=== PATIENT | female | born 1980 | race Caucasian/White ===

== ENCOUNTER 2023-05-30 14:37 | Emergency (ER) | payer BC ==
[~2023-05-30] VITALS: Ht 162.6 cm; Wt 59.0 kg
[2023-05-30 15:04] VITALS: BP_SYST 138; PULSE 118; RESP 18; TEMP 98.2; O2SAT 98
[2023-05-30 15:43] LABS: BASOPHILS % (AUTO) 0.6 % (0.0-2.0); EOSINOPHILS # (AUTO) 0.1 K/uL (0.0-0.4); EOSINOPHILS % (AUTO) 0.7 % (0.0-4.0); HEMOGLOBIN 10.1 g/dL (12.0-16.0); LYMPHOCYTES # (AUTO) 1.3 K/uL (1.0-5.5); LYMPHOCYTES % (AUTO) 16.6 % (20.5-51.5); MEAN CORPUSCULAR HEMOGLOBIN 23 pg (27-31); MEAN CORPUSCULAR HGB CONC 31 % (32-36); MEAN CORPUSCULAR VOLUME 74 fL (79.0-98.0); MONOCYTES # (AUTO) 0.4 K/uL (0.0-1.0); MONOCYTES % (AUTO) 4.9 % (1.7-9.3); NEUTROPHILS # (AUTO) 5.9 K/uL (1.8-7.7); NEUTROPHILS % (AUTO) 77.2 % (40.0-70.0); PLATELET COUNT (AUTO) 345 K/uL (130-430); RED BLOOD CELL COUNT(AUTO) 4.44 MIL/uL (4.2-6.2); RED CELL DISTRIBUTION WIDTH 18.8 % (9.0-15.0); WHITE BLOOD COUNT (AUTO) 7.7 K/uL (4.8-10.8)
[2023-05-30 15:53] LABS: ANION GAP 11 (5-15); CALCIUM 8.5 mg/dL (8.4-11.0); CARBON DIOXIDE 26 mmol/L (23-29); CHLORIDE 101 mmol/L (98-107); CREATININE 0.63 mg/dL (0.55-1.30); GFR AFRICAN AMERICAN 135 mL/min (>90); GLUCOSE 110 mg/dL (74-106); POTASSIUM 3.8 mmol/L (3.5-5.1); SODIUM SERUM 138 mmol/L (136-145); UREA NITROGEN, BLOOD 4 mg/dL (8-21)
[2023-05-30 15:55] LABS: GFR NON AFRICAN-AMERICAN 111 mL/min (>90)
[2023-05-30 15:58] LABS: ALANINE AMINOTRANSFERASE 11 U/L (12-78); ALBUMIN 3.9 g/dL (3.4-4.8); ASPARTATE AMINOTRANSFERASE 24 U/L (10-37); TOTAL BILIRUBIN 0.9 mg/dL (0.0-1.0); TOTAL PROTEIN, SERUM 7.7 g/dL (6.4-8.3)
[2023-05-30 16:02] LABS: ALCOHOL, BLOOD < 3 mg/dL (<10); SALICYLATE < 1 mg/dL (3-30)
[2023-05-30 16:11] LABS: BARBITURATE, URINE NEGATIVE (NEG <=200); BENZODIAZEPINE, URINE NEGATIVE (NEG <=150); COCAINE, URINE NEGATIVE (NEG <=150); METHAMPHETAMINES SCREEN,URINE NEGATIVE (NEG <=500); OPIATE, URINE NEGATIVE (NEG <=100); PHENCYCLIDINE SCREEN,URINE NEGATIVE (NEG <=25); URINE AMPHETAMINE NEGATIVE (NEG <=500); URINE METHADONE NEGATIVE (NEG <=200); URINE OXYCODONE SCREEN NEGATIVE (NEG <=100); URINE PROPOXYPHENE SCREEN NEGATIVE (NEG <=300)
[2023-05-30 16:12] LABS: CANNABINOID, URINE POSITIVE (NEG <=50); UR TRICYCLIC ANTIDEPRESSANTS NEGATIVE (NEG <=300)
[2023-05-30 16:16] LABS: ACETAMINOPHEN < 1 ug/mL (1-30)
[2023-05-30 16:38] LABS: CLARITY/URINE CLEAR (CLEAR); COLOR,URINE YELLOW (YELLOW)
[2023-05-30 16:39] LABS: BILIRUBIN,URINE NEGATIVE (NEGATIVE); BLOOD, URINE 3+ (NEGATIVE); GLUCOSE,URINE NEGATIVE (NEGATIVE); KETONES,URINE NEGATIVE (NEGATIVE); LEUKOCYTE ESTERASE ,URINE NEGATIVE (NEGATIVE); NITRITE, URINE NEGATIVE (NEGATIVE); PROTEIN URINE NEGATIVE (NEGATIVE); UROBILINOGEN,URINE 0.2 (0.2-1.0)
[2023-05-30 16:50] LABS: BACTERIA,URINE FEW /HPF (None Seen); MUCUS,URINE None Seen /LPF (None Seen); WBC,URINE 0-3 /HPF (0-3)
[2023-05-30 17:12] LABS: HYPOCHROMASIA 2+
[2023-05-30 17:13] LABS: ANISOCYTOSIS 1+; OVALOCYTES FEW; STOMATOCYTES FEW
[2023-05-30] MEDS ORDERED: NACL 0.9% 1,000 ML IV ONE (17:15)
[2023-05-30] MEDS ORDERED: LORazepam 1 MG TABLET PO ONE (17:15)
[2023-05-30 17:23] LABS: LIPASE 55 U/L (73-393)
[2023-05-30 19:21] VITALS: BP_SYST 125; PULSE 107; RESP 16; TEMP 98; O2SAT 96
== END 2023-05-30 19:21 | disposition home or self-care (01) ==
LOC: SED 14:37
DX: F41.9 Anxiety disorder, unspecified (principal); R10.9 Unspecified abdominal pain; R07.9 Chest pain, unspecified; F10.10 Alcohol abuse, uncomplicated; Z88.0 Allergy status to penicillin; Z88.1 Allergy status to other antibiotic agents; Z88.5 Allergy status to narcotic agent; Z79.899 Other long term (current) drug therapy; Y90.6 Blood alcohol level of 120-199 mg/100 ml
CPT/HCPCS: 99285; 96360; 71045; 80307; 80053; 83690; 85025; 84484; 36415; 93005; 81000; J7030; G0480; G0481; G0482

== ENCOUNTER 2024-05-31 23:14 | Emergency (ER) | payer BC ==
[~2024-05-31] VITALS: Ht 162.6 cm; Wt 56.7 kg
[~2024-05-31 23:14] MED LIST: METR-154 PO; ONDA-8 TL; TRAM50TA2 PO
[2024-05-31 23:25] VITALS: BP_SYST 131; PULSE 79; RESP 16; TEMP 98.5; O2SAT 99
[2024-06-01] MEDS: NACL 0.9% 1,000 ML IV ONE (01:25)
[2024-06-01] MEDS: MORPHINE 4 MG INJ. 4 MG/ML VIAL IVP ONE (01:26)
[2024-06-01] MEDS: ONDANSETRON HCL 4 MG/2 ML VIAL IVP ONE (01:27)
[2024-06-01 01:34] LABS: ALBUMIN 3.6 g/dL (3.4-4.8); BILIRUBIN,DIRECT 0.1 mg/dL (0.0-0.3); CALCIUM 8.7 mg/dL (8.4-11.0); CREATININE 0.69 mg/dL (0.55-1.30); POTASSIUM 3.9 mmol/L (3.5-5.1); TOTAL BILIRUBIN 0.4 mg/dL (0.0-1.0); TOTAL PROTEIN, SERUM 7.9 g/dL (6.4-8.3)
[2024-06-01 02:06] LABS: BASOPHILS # (AUTO) 0.1 K/uL (0.0-0.2); BASOPHILS % (AUTO) 0.7 % (0.0-2.0); EOSINOPHILS # (AUTO) 0.1 K/uL (0.0-0.4); EOSINOPHILS % (AUTO) 1.3 % (0.0-4.0); HEMATOCRIT 27.9 % (36-48); HEMOGLOBIN 8.5 g/dL (12.0-16.0); LYMPHOCYTES # (AUTO) 1.2 K/uL (1.0-5.5); LYMPHOCYTES % (AUTO) 11.2 % (20.5-51.5); MEAN CORPUSCULAR HEMOGLOBIN 19 pg (27-31); MEAN CORPUSCULAR HGB CONC 30 % (32-36); MEAN CORPUSCULAR VOLUME 62 fL (79.0-98.0); MONOCYTES # (AUTO) 0.7 K/uL (0.0-1.0); MONOCYTES % (AUTO) 6.6 % (1.7-9.3); NEUTROPHILS # (AUTO) 8.7 K/uL (1.8-7.7); NEUTROPHILS % (AUTO) 80.2 % (40.0-70.0); PLATELET COUNT (AUTO) 549 K/uL (130-430); RED BLOOD CELL COUNT(AUTO) 4.49 MIL/uL (4.2-6.2); RED CELL DISTRIBUTION WIDTH 21.5 % (9.0-15.0); WHITE BLOOD COUNT (AUTO) 10.9 K/uL (4.8-10.8)
[2024-06-01 02:43] LABS: BILIRUBIN,URINE NEGATIVE (NEGATIVE); BLOOD, URINE NEGATIVE (NEGATIVE); CLARITY/URINE CLEAR (CLEAR); COLOR,URINE YELLOW (YELLOW); GLUCOSE,URINE NEGATIVE (NEGATIVE); KETONES,URINE TRACE (NEGATIVE); LEUKOCYTE ESTERASE ,URINE NEGATIVE (NEGATIVE); NITRITE, URINE NEGATIVE (NEGATIVE); PROTEIN URINE NEGATIVE (NEGATIVE); UROBILINOGEN,URINE 0.2 (0.2-1.0)
[2024-06-01] MEDS ORDERED: DICY-14 PO (03:40)
[2024-06-01] MEDS ORDERED: PANT20TA2 PO (03:40)
[2024-06-01] MEDS: MAG HYDROX/AL HYDROX/SIMETH 30 ML, DICYCLOMINE HCL 20 MG, LIDOCAINE VISCOUS 2% 15ML (PO... PO ONE (03:49)
[2024-06-01] MEDS: KETOROLAC TROMETHAMINE 30 MG VIAL IVP ONE (03:49)
[2024-06-01 04:09] VITALS: BP_SYST 138; PULSE 71; RESP 16; TEMP 98.3; O2SAT 98
== END 2024-06-01 04:09 | disposition home or self-care (01) ==
LOC: SED 23:14
DX: G89.29 Other chronic pain (principal); R10.13 Epigastric pain; E11.9 Type 2 diabetes mellitus without complications; Z88.0 Allergy status to penicillin; Z88.1 Allergy status to other antibiotic agents; Z88.6 Allergy status to analgesic agent; Z79.899 Other long term (current) drug therapy; Z79.2 Long term (current) use of antibiotics
CPT/HCPCS: 99285; 80076; 80048; 81001; 83690; 85025; 36415; 81003; 74176; 96374; 96375; 96361; 93005; J1885; J2405; J2270; J7030; J2001

== ENCOUNTER 2024-06-03 06:08 | Inpatient (IN) | payer BC ==
[~2024-06-03] VITALS: Ht 162.6 cm; Wt 55.3 kg
[~2024-06-03 06:08] MED LIST changes: +DICY-14 PO; +PANT20TA2 PO
[2024-06-03 06:14] VITALS: BP_SYST 128; PULSE 75; RESP 22; TEMP 96.9; O2SAT 100
[2024-06-03] MEDS: ONDANSETRON HCL 4 MG/2 ML VIAL IVP ONE (06:55)
[2024-06-03] MEDS: KETOROLAC TROMETHAMINE 30 MG VIAL IVP ONE (06:56)
[2024-06-03 07:10] LABS: BASOPHILS # (AUTO) 0.1 K/uL (0.0-0.2); BASOPHILS % (AUTO) 0.4 % (0.0-2.0); EOSINOPHILS % (AUTO) 0.2 % (0.0-4.0); HEMATOCRIT 32.7 % (36-48); HEMOGLOBIN 9.4 g/dL (12.0-16.0); LYMPHOCYTES # (AUTO) 0.7 K/uL (1.0-5.5); LYMPHOCYTES % (AUTO) 5.3 % (20.5-51.5); MEAN CORPUSCULAR HEMOGLOBIN 18 pg (27-31); MEAN CORPUSCULAR HGB CONC 29 % (32-36); MEAN CORPUSCULAR VOLUME 64 fL (79.0-98.0); MONOCYTES # (AUTO) 0.4 K/uL (0.0-1.0); MONOCYTES % (AUTO) 2.8 % (1.7-9.3); NEUTROPHILS # (AUTO) 12.8 K/uL (1.8-7.7); NEUTROPHILS % (AUTO) 91.3 % (40.0-70.0); RED BLOOD CELL COUNT(AUTO) 5.11 MIL/uL (4.2-6.2); RED CELL DISTRIBUTION WIDTH 21.8 % (9.0-15.0)
[2024-06-03 07:39] LABS: ALANINE AMINOTRANSFERASE 18 U/L (12-78); ALBUMIN 3.9 g/dL (3.4-4.8); ANION GAP 10 (5-15); ASPARTATE AMINOTRANSFERASE 15 U/L (10-37); BILIRUBIN,DIRECT 0.2 mg/dL (0.0-0.3); CALCIUM 9.1 mg/dL (8.4-11.0); CARBON DIOXIDE 25 mmol/L (23-29); CHLORIDE 96 mmol/L (98-107); CREATININE 0.63 mg/dL (0.55-1.30); GFR AFRICAN AMERICAN 134 mL/min (>90); GLUCOSE 180 mg/dL (74-106); LIPASE 19 U/L (16-77); POTASSIUM 3.6 mmol/L (3.5-5.1); SODIUM SERUM 131 mmol/L (136-145); TOTAL BILIRUBIN 0.6 mg/dL (0.0-1.0); TOTAL PROTEIN, SERUM 8.4 g/dL (6.4-8.3); UREA NITROGEN, BLOOD 10 mg/dL (8-21)
[2024-06-03 07:44] LABS: SERUM HCG (QUALITATIVE) NEGATIVE (NEGATIVE)
[2024-06-03 07:45] LABS: ALCOHOL, BLOOD < 3 mg/dL (<10); GFR NON AFRICAN-AMERICAN 111 mL/min (>90)
[2024-06-03 08:05] LABS: ANISOCYTOSIS 2+; HYPOCHROMASIA 2+; OVALOCYTES FEW; STOMATOCYTES FEW; TARGET CELLS FEW
[2024-06-03 08:06] LABS: PLATELET COUNT (AUTO) 798 K/uL (130-430)
[2024-06-03] MEDS: MAG HYDROX/AL HYDROX/SIMETH 30 ML, DICYCLOMINE HCL 20 MG, LIDOCAINE VISCOUS 2% 15ML (PO... PO ONE (08:24)
[2024-06-03] MEDS: MORPHINE 4 MG INJ. 4 MG/ML VIAL IVP ONE ×2 (09:24→10:07)
[2024-06-03] MEDS: metroNIDAZOLE 500 mg/NS 100 ML IV ONE (09:25)
[2024-06-03 09:29] LABS: PROTHROMBIN TIME 10.6 SECS (9.5-12.5)
[2024-06-03] MEDS: NS 1000 ML IV.SOLN IV ONE (09:33)
[2024-06-03] MEDS: MORPHINE 2 MG/ML INJ. SYRINGE IVP ONE ×2 (09:45→10:00)
[2024-06-03] MEDS: VANCOMYCIN HCL 1,000 MG in NS 250 ML IV ONE (11:00)
[2024-06-03] MEDS ORDERED: MORPHINE 2 MG/ML INJ. SYRINGE IVP PRN (11:00)
[2024-06-03] MEDS ORDERED: PANTOPRAZOLE SODIUM 40 MG/VIAL (PROTONIX) ONE (11:03)
[2024-06-03] MEDS ORDERED: VANCOMYCIN HCL 1000 MG/VIAL IV ONE (11:03)
[2024-06-03] MEDS: PANTOPRAZOLE SODIUM 80 MG in NS 100 ML IV ONE (11:07)
[2024-06-03 11:35] LABS: BILIRUBIN,URINE NEGATIVE (NEGATIVE); BLOOD, URINE NEGATIVE (NEGATIVE); CLARITY/URINE CLEAR (CLEAR); COLOR,URINE YELLOW (YELLOW); GLUCOSE,URINE NEGATIVE (NEGATIVE); KETONES,URINE TRACE (NEGATIVE); LEUKOCYTE ESTERASE ,URINE NEGATIVE (NEGATIVE); NITRITE, URINE NEGATIVE (NEGATIVE); PROTEIN URINE NEGATIVE (NEGATIVE); UROBILINOGEN,URINE 0.2 (0.2-1.0)
[2024-06-03 11:57] LABS: BARBITURATE, URINE NEGATIVE (NEG <=200); METHAMPHETAMINES SCREEN,URINE NEGATIVE (NEG <=500); URINE AMPHETAMINE NEGATIVE (NEG <=500)
[2024-06-03 11:58] LABS: BENZODIAZEPINE, URINE NEGATIVE (NEG <=150); CANNABINOID, URINE POSITIVE (NEG <=50); COCAINE, URINE NEGATIVE (NEG <=150); OPIATE, URINE POSITIVE (NEG <=100); PHENCYCLIDINE SCREEN,URINE NEGATIVE (NEG <=25); UR TRICYCLIC ANTIDEPRESSANTS NEGATIVE (NEG <=300); URINE METHADONE NEGATIVE (NEG <=200); URINE OXYCODONE SCREEN NEGATIVE (NEG <=100)
[2024-06-03] MEDS: D5/0.45 NS 1,000 ML IV SCH (12:20)
[2024-06-03 13:11] VITALS: BP_SYST 122; PULSE 107; RESP 20; TEMP 97.5
[2024-06-03] MEDS: MORPHINE 4 MG INJ. 4 MG/ML VIAL IVP PRN ×2 (13:55→17:09)
[2024-06-03] MEDS: POTASSIUM CHLORIDE 20 MEQ in D5LR 1,000 ML IV SCH (17:09)
[2024-06-03 20:00] VITALS: BP_SYST 126; PULSE 114; RESP 18; TEMP 98.2; O2SAT 97
[2024-06-03] MEDS: ONDANSETRON HCL 4 MG/2 ML VIAL IM PRN (20:17)
[2024-06-03] MEDS: ONDANSETRON HCL 4 MG/2 ML VIAL IVP PRN (20:19)
[2024-06-03] MEDS: metroNIDAZOLE 500 mg/NS 100 ML IV SCH (22:25)
[2024-06-04 00:30] VITALS: BP_SYST 115; PULSE 127; RESP 18; TEMP 98.4; O2SAT 97
[2024-06-04 04:05] VITALS: BP_SYST 135; PULSE 133; RESP 20; TEMP 99.7; O2SAT 99
[2024-06-04 06:27] LABS: BASOPHILS % (AUTO) 0.4 % (0.0-2.0); HEMATOCRIT 30.6 % (36-48); LYMPHOCYTES # (AUTO) 0.4 K/uL (1.0-5.5); LYMPHOCYTES % (AUTO) 4.8 % (20.5-51.5); MEAN CORPUSCULAR HEMOGLOBIN 19 pg (27-31); MEAN CORPUSCULAR HGB CONC 29 % (32-36); MEAN CORPUSCULAR VOLUME 64 fL (79.0-98.0); MONOCYTES # (AUTO) 0.3 K/uL (0.0-1.0); MONOCYTES % (AUTO) 4.4 % (1.7-9.3); NEUTROPHILS # (AUTO) 6.8 K/uL (1.8-7.7); NEUTROPHILS % (AUTO) 90.4 % (40.0-70.0); PLATELET COUNT (AUTO) 579 K/uL (130-430); RED BLOOD CELL COUNT(AUTO) 4.82 MIL/uL (4.2-6.2); WHITE BLOOD COUNT (AUTO) 7.5 K/uL (4.8-10.8)
[2024-06-04 06:55] LABS: CALCIUM 8.3 mg/dL (8.4-11.0); CREATININE 0.58 mg/dL (0.55-1.30); POTASSIUM 4.3 mmol/L (3.5-5.1)
[2024-06-04 07:00] VITALS: O2SAT 99
[2024-06-04] MEDS: BUPIVACAINE LIPOSOME/PF 266 MG/20 ML VIAL INFIL ONE (07:34)
[2024-06-04 08:00] VITALS: BP_SYST 114; PULSE 127; RESP 20; TEMP 98.1; O2SAT 99
[2024-06-04] MEDS ORDERED: ROCURONIUM BROMIDE 10 MG/ML (ZEMURON) ONE (08:37)
[2024-06-04] MEDS ORDERED: NS 100 ML BAG ONE (08:37)
[2024-06-04] MEDS ORDERED: fentaNYL CITRATE/PF 100 MCG/2 ML AMP ONE (08:37)
[2024-06-04] MEDS ORDERED: MIDAZOLAM HCL 2 MG/2 ML VIAL (VERSED) ONE (08:37)
[2024-06-04] MEDS ORDERED: NS IRRIG SOLN 1000 ML IR ONE (08:37)
[2024-06-04] MEDS ORDERED: NEOSTIGMINE METHYLSULFATE 1 MG/ML, 10 ML VIAL ONE (08:37)
[2024-06-04] MEDS ORDERED: METOCLOPRAMIDE HCL 10 MG/2 ML VIAL ONE (08:37)
[2024-06-04] MEDS ORDERED: SEVOFLURANE 15 MIN GAS INH ONE (08:37)
[2024-06-04] MEDS ORDERED: ONDANSETRON HCL 4 MG/2 ML VIAL ONE (08:37)
[2024-06-04] MEDS ORDERED: GLYCOPYRROLATE 0.2 MG/ML VIAL ONE (08:37)
[2024-06-04] MEDS ORDERED: NS 1000 ML IV.SOLN IV ONE (08:37)
[2024-06-04] MEDS ORDERED: CALCIUM CHLORIDE 1 GM/10 ML DISP.SYRIN (14 mEq Ca++/SYR) ONE (08:37)
[2024-06-04] MEDS ORDERED: DEXAMETHASONE SOD PHOSPHATE 4 MG/ML VIAL ONE (08:37)
[2024-06-04] MEDS ORDERED: WATER FOR IRRIGATION,STERILE 1,000 ML IRRIG.SOLN IR ONE (08:37)
[2024-06-04] MEDS ORDERED: PROPOFOL 200MG/ 20ML VIAL (DIPRIVAN) IV ONE (08:37)
[2024-06-04] MEDS: CALCIUM CHLORIDE 1 GM/10ML VIAL (13.6 mEq Ca++/VIAL) IV ONE (09:45)
[2024-06-04] MEDS ORDERED: METOCLOPRAMIDE HCL 10 MG/2 ML VIAL IVP PRN (10:00)
[2024-06-04] MEDS: ACETAMINOPHEN I.V. 1000 MG 100 ML IV ONE ×2 (10:30→12:41)
[2024-06-04] MEDS: PANTOPRAZOLE SODIUM 40 MG/VIAL (PROTONIX) IVP ONE (10:30)
[2024-06-04] MEDS: MORPHINE 4 MG INJ. 4 MG/ML VIAL IVP PRN (12:25)
[2024-06-04] MEDS: MORPHINE 2 MG/ML INJ. SYRINGE ONE (12:26)
[2024-06-04] MEDS: fentaNYL CITRATE/PF 100 MCG/2 ML AMP ONE (12:40)
[2024-06-04] MEDS: fentaNYL CITRATE/PF 100 MCG/2 ML AMP IVP ONE (12:41)
[2024-06-04] MEDS: ONDANSETRON HCL 4 MG/2 ML VIAL IVP PRN (13:16)
[2024-06-04] MEDS: ONDANSETRON HCL 4 MG/2 ML VIAL ONE (14:11)
[2024-06-04 16:00] VITALS: BP_SYST 114; PULSE 112; RESP 16; TEMP 94.6; O2SAT 98
[2024-06-04] MEDS ORDERED: MORPHINE 2 MG/ML INJ. SYRINGE IVP PRN (18:00)
[2024-06-04] MEDS ORDERED: NALOXONE HCL 0.4 MG/ML AMP (NARCAN) IVP PRN (18:00)
[2024-06-04 20:04] VITALS: BP_SYST 115; PULSE 115; RESP 20; TEMP 98.4; O2SAT 98
[2024-06-04] MEDS: CEFEPIME 2 GM in D5W 100 ML IV SCH (20:57)
[2024-06-04] MEDS: LORazepam 2 MG/ML VIAL IVP PRN (22:36)
[2024-06-05] VITALS (7 sets, daily range): BP systolic 126–142; PULSE 105–135; RESP 18–20; TEMP 98.4–99.7; O2SAT 94–100
[2024-06-05 06:40] LABS: BASOPHILS % (AUTO) 0.1 % (0.0-2.0); EOSINOPHILS % (AUTO) 0.1 % (0.0-4.0); HEMATOCRIT 26.2 % (36-48); HEMOGLOBIN 7.7 g/dL (12.0-16.0); LYMPHOCYTES # (AUTO) 0.6 K/uL (1.0-5.5); LYMPHOCYTES % (AUTO) 5.9 % (20.5-51.5); MEAN CORPUSCULAR HEMOGLOBIN 19 pg (27-31); MEAN CORPUSCULAR HGB CONC 29 % (32-36); MEAN CORPUSCULAR VOLUME 64 fL (79.0-98.0); MONOCYTES # (AUTO) 0.5 K/uL (0.0-1.0); MONOCYTES % (AUTO) 5.4 % (1.7-9.3); NEUTROPHILS # (AUTO) 8.6 K/uL (1.8-7.7); NEUTROPHILS % (AUTO) 88.5 % (40.0-70.0); PLATELET COUNT (AUTO) 503 K/uL (130-430); RED BLOOD CELL COUNT(AUTO) 4.09 MIL/uL (4.2-6.2); RED CELL DISTRIBUTION WIDTH 21.4 % (9.0-15.0); WHITE BLOOD COUNT (AUTO) 9.7 K/uL (4.8-10.8)
[2024-06-05 07:23] LABS: ERYTHROCYTE SEDIMENTATION RATE 50 MM/HR (0-20)
[2024-06-05 08:09] LABS: ALBUMIN 1.7 g/dL (3.4-4.8); CREATININE 0.63 mg/dL (0.55-1.30); PHOSPHORUS 1.9 mg/dL (2.7-4.5); POTASSIUM 4.3 mmol/L (3.5-5.1); TOTAL BILIRUBIN 0.4 mg/dL (0.0-1.0); TOTAL PROTEIN, SERUM 5.2 g/dL (6.4-8.3)
[2024-06-05] MEDS: CALCIUM GLUC 2 GM/100ML-NACL 100 ML IV ONE (14:51)
[2024-06-05] MEDS: NA PHOS 15 MM in NS 250 ML IV ONE (16:04)
[2024-06-05] MEDS: ACETAMINOPHEN 650 MG SUPP.RECT RC PRN (16:10)
[2024-06-05] MEDS ORDERED: iohexoL 180 mgI/mL, 20 ML VIAL IT ONE (17:22)
[2024-06-05] MEDS ORDERED: CYSTOGRAFIN 300 ML INFUS..BTL UR ONE (17:24)
[2024-06-05] MEDS ORDERED: GADOBENATE DIMEGLUMINE 529 MG/ML, 5 ML VIAL IV ONE (17:25)
[2024-06-05] MEDS ORDERED: DIATR MEGLU/DIATRIZ SOD 30 ML SOLUTION PO ONE (17:25)
[2024-06-05] MEDS: MORPHINE PCA 50 mg/50 mL NS 50 ML IV PRN (20:02)
[2024-06-06 00:07] VITALS: BP_SYST 115; PULSE 107; RESP 16; TEMP 98.9; O2SAT 98
[2024-06-06 08:00] VITALS: O2SAT 100
[2024-06-06 08:29] LABS: CREATININE 0.54 mg/dL (0.55-1.30); PHOSPHORUS 2.6 mg/dL (2.7-4.5); POTASSIUM 4.1 mmol/L (3.5-5.1)
[2024-06-06 08:34] LABS: BASOPHILS % (AUTO) 0.3 % (0.0-2.0); EOSINOPHILS # (AUTO) 0.1 K/uL (0.0-0.4); EOSINOPHILS % (AUTO) 0.9 % (0.0-4.0); HEMATOCRIT 33.2 % (36-48); HEMOGLOBIN 10.1 g/dL (12.0-16.0); LYMPHOCYTES # (AUTO) 0.6 K/uL (1.0-5.5); LYMPHOCYTES % (AUTO) 4.9 % (20.5-51.5); MEAN CORPUSCULAR HEMOGLOBIN 21 pg (27-31); MEAN CORPUSCULAR HGB CONC 30 % (32-36); MEAN CORPUSCULAR VOLUME 68 fL (79.0-98.0); MONOCYTES # (AUTO) 1.1 K/uL (0.0-1.0); MONOCYTES % (AUTO) 8.8 % (1.7-9.3); NEUTROPHILS # (AUTO) 10.9 K/uL (1.8-7.7); NEUTROPHILS % (AUTO) 85.1 % (40.0-70.0); PLATELET COUNT (AUTO) 487 K/uL (130-430); RED BLOOD CELL COUNT(AUTO) 4.88 MIL/uL (4.2-6.2); RED CELL DISTRIBUTION WIDTH 24.5 % (9.0-15.0); WHITE BLOOD COUNT (AUTO) 12.8 K/uL (4.8-10.8)
[2024-06-06 09:25] LABS: ERYTHROCYTE SEDIMENTATION RATE 70 MM/HR (0-20)
[2024-06-06] MEDS ORDERED: CALCIUM GLUCONATE 2 GM in NS 100 ML IV ONE (10:30)
[2024-06-06 11:33] VITALS: BP_SYST 109; PULSE 70; RESP 16; TEMP 97.8; O2SAT 98
[2024-06-06] MEDS: CALCIUM GLUC 2 GM/100ML-NACL 100 ML IV ONE (12:59)
[2024-06-06] MEDS: NA PHOS 15 MM in NS 250 ML IV ONE (13:18)
[2024-06-06 15:32] VITALS: O2SAT 98
[2024-06-06 16:09] VITALS: BP_SYST 105; PULSE 68; RESP 16; TEMP 97.6; O2SAT 97
[2024-06-06 20:00] VITALS: BP_SYST 133; PULSE 123; RESP 16; TEMP 98.2; O2SAT 95
[2024-06-07] VITALS: BP_SYST 137; PULSE 120; RESP 18; TEMP 98.9; O2SAT 92
[2024-06-07 08:09] VITALS: BP_SYST 133; PULSE 122; RESP 18; TEMP 98; O2SAT 95
[2024-06-07 08:09] LABS: BASOPHILS % (AUTO) 0.3 % (0.0-2.0); EOSINOPHILS # (AUTO) 0.2 K/uL (0.0-0.4); EOSINOPHILS % (AUTO) 1.1 % (0.0-4.0); HEMOGLOBIN 10.1 g/dL (12.0-16.0); LYMPHOCYTES # (AUTO) 0.6 K/uL (1.0-5.5); LYMPHOCYTES % (AUTO) 4.3 % (20.5-51.5); MEAN CORPUSCULAR HEMOGLOBIN 21 pg (27-31); MEAN CORPUSCULAR HGB CONC 31 % (32-36); MEAN CORPUSCULAR VOLUME 67 fL (79.0-98.0); MONOCYTES % (AUTO) 14.6 % (1.7-9.3); NEUTROPHILS # (AUTO) 11.2 K/uL (1.8-7.7); NEUTROPHILS % (AUTO) 79.7 % (40.0-70.0); PLATELET COUNT (AUTO) 462 K/uL (130-430); RED BLOOD CELL COUNT(AUTO) 4.91 MIL/uL (4.2-6.2); RED CELL DISTRIBUTION WIDTH 25.2 % (9.0-15.0)
[2024-06-07 08:21] LABS: ALBUMIN 1.5 g/dL (3.4-4.8); CALCIUM 8.1 mg/dL (8.4-11.0); CREATININE 0.51 mg/dL (0.55-1.30); POTASSIUM 3.9 mmol/L (3.5-5.1); TOTAL BILIRUBIN 0.6 mg/dL (0.0-1.0); TOTAL PROTEIN, SERUM 5.1 g/dL (6.4-8.3)
[2024-06-07] MEDS: PANTOPRAZOLE SODIUM 40 MG/VIAL (PROTONIX) IVP SCH (08:37)
[2024-06-07 08:38] LABS: ERYTHROCYTE SEDIMENTATION RATE 50 MM/HR (0-20)
[2024-06-07 10:00] VITALS: O2SAT 96
[2024-06-07] MEDS ORDERED: CALCIUM GLUCONATE 2 GM in NS 100 ML IV ONE (11:30)
[2024-06-07 11:31] VITALS: BP_SYST 118; BP_SYST 142; PULSE 125; PULSE 91; RESP 15; TEMP 97.5; TEMP 97.7; O2SAT 95
[2024-06-07] MEDS: CALCIUM GLUC 2 GM/100ML-NACL 100 ML IV ONE (13:10)
[2024-06-07 16:19] VITALS: BP_SYST 123; PULSE 128; RESP 15; TEMP 98.4; O2SAT 100
[2024-06-07 20:30] VITALS: BP_SYST 132; PULSE 125; RESP 18; TEMP 98.8; O2SAT 94; O2SAT 97
[2024-06-08] VITALS (7 sets, daily range): BP systolic 111–142; PULSE 113–128; RESP 16–18; TEMP 98.6–99; O2SAT 96–100
[2024-06-08] MEDS ORDERED: ACETAMINOPHEN 650 MG/20.3 ML UDC PO PRN (05:30)
[2024-06-08] MEDS: ACETAMINOPHEN 325 MG TABLET PO PRN (06:28)
[2024-06-08 08:50] LABS: EOSINOPHILS # (AUTO) 0.2 K/uL (0.0-0.4); HEMOGLOBIN 9.9 g/dL (12.0-16.0); LYMPHOCYTES # (AUTO) 0.5 K/uL (1.0-5.5); RED CELL DISTRIBUTION WIDTH 25.2 % (9.0-15.0)
[2024-06-08 08:53] LABS: CALCIUM 8.2 mg/dL (8.4-11.0); CREATININE 0.57 mg/dL (0.55-1.30); POTASSIUM 3.9 mmol/L (3.5-5.1)
[2024-06-08 08:54] LABS: BASOPHILS % (AUTO) 0.3 % (0.0-2.0); EOSINOPHILS % (AUTO) 1.4 % (0.0-4.0); HEMATOCRIT 32.5 % (36-48); MEAN CORPUSCULAR HEMOGLOBIN 20 pg (27-31); MEAN CORPUSCULAR HGB CONC 30 % (32-36); MEAN CORPUSCULAR VOLUME 67 fL (79.0-98.0); MONOCYTES # (AUTO) 1.9 K/uL (0.0-1.0); MONOCYTES % (AUTO) 14.3 % (1.7-9.3); NEUTROPHILS # (AUTO) 10.8 K/uL (1.8-7.7); PLATELET COUNT (AUTO) 496 K/uL (130-430); RED BLOOD CELL COUNT(AUTO) 4.83 MIL/uL (4.2-6.2); WHITE BLOOD COUNT (AUTO) 13.5 K/uL (4.8-10.8)
[2024-06-08 09:20] LABS: ERYTHROCYTE SEDIMENTATION RATE 71 MM/HR (0-20)
[2024-06-08] MEDS: KCL 20 mEq in D5/0.45NS 1000mL 1,000 ML IV SCH (10:19)
[2024-06-09 00:07] VITALS: BP_SYST 121; PULSE 121; RESP 20; TEMP 99.2; O2SAT 96
[2024-06-09 06:10] LABS: BASOPHILS % (AUTO) 0.3 % (0.0-2.0); EOSINOPHILS # (AUTO) 0.4 K/uL (0.0-0.4); HEMATOCRIT 31.6 % (36-48); HEMOGLOBIN 9.7 g/dL (12.0-16.0); LYMPHOCYTES # (AUTO) 1.1 K/uL (1.0-5.5); LYMPHOCYTES % (AUTO) 8.9 % (20.5-51.5); MEAN CORPUSCULAR HEMOGLOBIN 21 pg (27-31); MEAN CORPUSCULAR HGB CONC 31 % (32-36); MEAN CORPUSCULAR VOLUME 68 fL (79.0-98.0); MONOCYTES # (AUTO) 1.8 K/uL (0.0-1.0); NEUTROPHILS # (AUTO) 9.3 K/uL (1.8-7.7); NEUTROPHILS % (AUTO) 73.8 % (40.0-70.0); PLATELET COUNT (AUTO) 527 K/uL (130-430); RED BLOOD CELL COUNT(AUTO) 4.66 MIL/uL (4.2-6.2); RED CELL DISTRIBUTION WIDTH 25.6 % (9.0-15.0); WHITE BLOOD COUNT (AUTO) 12.6 K/uL (4.8-10.8)
[2024-06-09] MEDS ORDERED: traMADol HCL HCL 50 MG TABLET (ULTRAM) PO PRN (06:15)
[2024-06-09 06:51] LABS: CREATININE 0.41 mg/dL (0.55-1.30)
[2024-06-09 08:15] VITALS: BP_SYST 124; PULSE 115; RESP 24; TEMP 99.1; O2SAT 99
[2024-06-09 12:49] VITALS: BP_SYST 129; PULSE 114; RESP 20; TEMP 98.6; O2SAT 99
[2024-06-09 13:36] LABS: HYPOCHROMASIA 1+
[2024-06-09] MEDS: POLYETHYLENE GLYCOL 3350, 17 GM/ POWD.PACK PO ONE (15:09)
[2024-06-09 16:09] VITALS: BP_SYST 141; PULSE 126; RESP 20; TEMP 97.8; O2SAT 96
[2024-06-09 20:30] VITALS: BP_SYST 126; PULSE 127; RESP 18; TEMP 99.4; O2SAT 95
[2024-06-09] MEDS: DOCUSATE SODIUM 100 MG CAPSULE PO SCH (20:31)
[2024-06-09 21:00] VITALS: O2SAT 95
[2024-06-10 01:42] VITALS: PULSE 113; RESP 16
[2024-06-10 07:25] LABS: BASOPHILS % (AUTO) 0.4 % (0.0-2.0); EOSINOPHILS # (AUTO) 0.2 K/uL (0.0-0.4); EOSINOPHILS % (AUTO) 1.8 % (0.0-4.0); HEMATOCRIT 28.2 % (36-48); HEMOGLOBIN 8.5 g/dL (12.0-16.0); LYMPHOCYTES # (AUTO) 0.8 K/uL (1.0-5.5); LYMPHOCYTES % (AUTO) 6.2 % (20.5-51.5); MEAN CORPUSCULAR HEMOGLOBIN 20 pg (27-31); MEAN CORPUSCULAR HGB CONC 30 % (32-36); MEAN CORPUSCULAR VOLUME 67 fL (79.0-98.0); MONOCYTES # (AUTO) 1.2 K/uL (0.0-1.0); MONOCYTES % (AUTO) 9.1 % (1.7-9.3); NEUTROPHILS # (AUTO) 10.7 K/uL (1.8-7.7); NEUTROPHILS % (AUTO) 82.5 % (40.0-70.0); PLATELET COUNT (AUTO) 538 K/uL (130-430); RED BLOOD CELL COUNT(AUTO) 4.19 MIL/uL (4.2-6.2); RED CELL DISTRIBUTION WIDTH 25.3 % (9.0-15.0)
[2024-06-10 08:00] VITALS: BP_SYST 127; PULSE 105; RESP 20; TEMP 97.9; O2SAT 95
[2024-06-10] MEDS: POLYETHYLENE GLYCOL 3350, 17 GM/ POWD.PACK PO SCH (08:34)
[2024-06-10] MEDS: traMADol HCL HCL 50 MG TABLET (ULTRAM) PO PRN ×2 (11:59→18:43)
[2024-06-10 12:48] VITALS: BP_SYST 146; PULSE 120; RESP 20; TEMP 97.9; O2SAT 97
[2024-06-10 16:32] VITALS: BP_SYST 134; PULSE 116; RESP 18; O2SAT 99
[2024-06-10 20:00] VITALS: BP_SYST 122; PULSE 102; RESP 18; TEMP 98; O2SAT 97
[2024-06-10 20:08] VITALS: O2SAT 96
[2024-06-11] VITALS (8 sets, daily range): BP systolic 124–138; PULSE 98–106; RESP 16–20; TEMP 97.6–98; O2SAT 94–99
[2024-06-11] MEDS ORDERED: TRAM50TA2 PO (06:12)
[2024-06-11] MEDS ORDERED: LEVO750T64 PO (06:14)
[2024-06-11] MEDS ORDERED: FLAPM500 PO (06:17)
[2024-06-11] MEDS ORDERED: METR-154 PO (06:29)
[2024-06-11 06:42] LABS: BASOPHILS # (AUTO) 0.1 K/uL (0.0-0.2); BASOPHILS % (AUTO) 0.5 % (0.0-2.0); EOSINOPHILS # (AUTO) 0.3 K/uL (0.0-0.4); EOSINOPHILS % (AUTO) 1.8 % (0.0-4.0); HEMATOCRIT 28.8 % (36-48); HEMOGLOBIN 8.8 g/dL (12.0-16.0); LYMPHOCYTES # (AUTO) 0.9 K/uL (1.0-5.5); LYMPHOCYTES % (AUTO) 6.2 % (20.5-51.5); MEAN CORPUSCULAR HEMOGLOBIN 21 pg (27-31); MEAN CORPUSCULAR HGB CONC 31 % (32-36); MEAN CORPUSCULAR VOLUME 68 fL (79.0-98.0); MONOCYTES # (AUTO) 1.2 K/uL (0.0-1.0); MONOCYTES % (AUTO) 8.3 % (1.7-9.3); NEUTROPHILS # (AUTO) 11.8 K/uL (1.8-7.7); NEUTROPHILS % (AUTO) 83.2 % (40.0-70.0); PLATELET COUNT (AUTO) 566 K/uL (130-430); RED BLOOD CELL COUNT(AUTO) 4.27 MIL/uL (4.2-6.2); WHITE BLOOD COUNT (AUTO) 14.1 K/uL (4.8-10.8)
[2024-06-11 06:59] LABS: CREATININE 0.5 mg/dL (0.55-1.30); POTASSIUM 3.9 mmol/L (3.5-5.1)
[2024-06-11 07:44] LABS: ERYTHROCYTE SEDIMENTATION RATE 75 MM/HR (0-20)
[2024-06-11] MEDS ORDERED: traMADol HCL HCL 50 MG TABLET (ULTRAM) PO PRN (12:00)
== END 2024-06-11 13:30 | disposition home health service (06) | DRG 853 ==
LOC: SED 06:08 → STU 10:11 → SMU 06-10 23:46
PROVIDERS: ADMIT Preventive Medicine Preventive Medicine/Occupational Environmental Medicine; ATTEND Preventive Medicine Preventive Medicine/Occupational Environmental Medicine
PROC: 0DQ60ZZ Repair Stomach, Open Approach (ICD-10-PCS; principal; 2024-06-05)
PROC: 30233N1 Transfusion of Nonautologous Red Blood Cells into Peripheral Vein, Percutaneous Approach (ICD-10-PCS; 2024-06-05)
DX: A41.9 Sepsis, unspecified organism (principal); E43 Unspecified severe protein-calorie malnutrition; K65.9 Peritonitis, unspecified; K28.5 Chronic or unspecified gastrojejunal ulcer with perforation; E87.1 Hypo-osmolality and hyponatremia; G51.0 Bell's palsy; E11.65 Type 2 diabetes mellitus with hyperglycemia; D64.9 Anemia, unspecified; D75.839 Thrombocytosis, unspecified; E83.39 Other disorders of phosphorus metabolism; K58.9 Irritable bowel syndrome, unspecified; E88.09 Other disorders of plasma-protein metabolism, not elsewhere classified; E83.52 Hypercalcemia; E11.649 Type 2 diabetes mellitus with hypoglycemia without coma; K80.20 Calculus of gallbladder without cholecystitis without obstruction; E86.0 Dehydration; E83.51 Hypocalcemia; L40.9 Psoriasis, unspecified; Z59.7 Insufficient social insurance and welfare support; Z98.84 Bariatric surgery status; Z68.20 Body mass index [BMI] 20.0-20.9, adult; Z88.0 Allergy status to penicillin; Z88.8 Allergy status to other drugs, medicaments and biological substances; Z79.899 Other long term (current) drug therapy; Z88.5 Allergy status to narcotic agent
CPT/HCPCS: 36415; 71045; 74018; 76705; 80048; 80053; 80076; 80307; 81001; 81003; 82948; 83605; 83690; 83735; 84100; 84484; 84703; 85025; 85610; 85651; 86886; 86900; 86901; 86920; 87040; 87086; 93005; 94010; 94070; 94760; 96365; 97110-GP; 97116-GP; 97530-GP; 99291; A9577; C9290; G0378; G0482; J0131; J0612; J0692; J1100; J1885; J1956; J2001; J2060; J2270; J2405; J2470; J2704; J2710; J2765; J3010; J3370; J3465; J3480; J3490; J7030; J7050; J7060; J7120; P9021; Q9958; Q9964; Q9965; Q9967

== ENCOUNTER 2024-06-14 19:44 | Inpatient (IN) | payer BC ==
[~2024-06-14] VITALS: Ht 162.6 cm; Wt 54.4 kg
[~2024-06-14 19:44] MED LIST changes: -DICY-14 PO; +LEVO750T64 PO; -PANT20TA2 PO
[2024-06-14 20:17] VITALS: BP_SYST 151; PULSE 125; RESP 18; TEMP 100.4; O2SAT 96
[2024-06-14 21:06] LABS: CALCIUM 7.8 mg/dL (8.4-11.0); CREATININE 0.42 mg/dL (0.55-1.30); POTASSIUM 3.5 mmol/L (3.5-5.1)
[2024-06-14] MEDS: MORPHINE 4 MG INJ. 4 MG/ML VIAL IVP ONE (21:06)
[2024-06-14 21:13] LABS: HEMATOCRIT 27.4 % (36-48); HEMOGLOBIN 8.3 g/dL (12.0-16.0); MEAN CORPUSCULAR HEMOGLOBIN 20 pg (27-31); MEAN CORPUSCULAR HGB CONC 30 % (32-36); MEAN CORPUSCULAR VOLUME 67 fL (79.0-98.0); RED CELL DISTRIBUTION WIDTH 25.3 % (9.0-15.0); WHITE BLOOD COUNT (AUTO) 13.6 K/uL (4.8-10.8)
[2024-06-14 21:16] LABS: PLATELET COUNT (AUTO) 995 K/uL (130-430)
[2024-06-14 21:26] LABS: BAND % (MANUAL) 2 % (0-6); BASOPHILS % (MANUAL) 0 % (0-2); EOSINOPHILS % (MANUAL) 1 % (0-7); LYMPHOCYTES % (MANUAL) 12 % (20-46); MONOCYTES % (MANUAL) 8 % (0-11)
[2024-06-14 21:27] LABS: ANISOCYTOSIS 2+; HYPOCHROMASIA 2+; OVALOCYTES FEW; PLATELET ESTIMATE INCREASED (ADEQUATE)
[2024-06-14] MEDS: D5/0.45 NS 1,000 ML IV ONE (22:29)
[2024-06-15] VITALS (7 sets, daily range): BP systolic 109–126; PULSE 99–104; RESP 16–20; TEMP 98.1–99.5; O2SAT 93–98
[2024-06-15] MEDS ORDERED: NALOXONE HCL 0.4 MG/ML AMP (NARCAN) IVP PRN (00:45)
[2024-06-15] MEDS ORDERED: ACETAMINOPHEN 325 MG TABLET PO PRN ×2 (01:00)
[2024-06-15] MEDS: MORPHINE 4 MG INJ. 4 MG/ML VIAL IVP PRN (01:38)
[2024-06-15] MEDS: ONDANSETRON HCL 4 MG/2 ML VIAL IVP PRN ×2 (06:31→11:31)
[2024-06-15 11:33] LABS: BASOPHILS # (AUTO) 0.1 K/uL (0.0-0.2); BASOPHILS % (AUTO) 0.8 % (0.0-2.0); EOSINOPHILS # (AUTO) 0.1 K/uL (0.0-0.4); EOSINOPHILS % (AUTO) 1.2 % (0.0-4.0); HEMATOCRIT 31.5 % (36-48); HEMOGLOBIN 9.7 g/dL (12.0-16.0); LYMPHOCYTES # (AUTO) 1.1 K/uL (1.0-5.5); LYMPHOCYTES % (AUTO) 11.4 % (20.5-51.5); MEAN CORPUSCULAR HEMOGLOBIN 21 pg (27-31); MEAN CORPUSCULAR HGB CONC 31 % (32-36); MEAN CORPUSCULAR VOLUME 68 fL (79.0-98.0); MONOCYTES # (AUTO) 0.7 K/uL (0.0-1.0); MONOCYTES % (AUTO) 7.3 % (1.7-9.3); NEUTROPHILS # (AUTO) 7.8 K/uL (1.8-7.7); RED BLOOD CELL COUNT(AUTO) 4.66 MIL/uL (4.2-6.2); RED CELL DISTRIBUTION WIDTH 25.1 % (9.0-15.0); WHITE BLOOD COUNT (AUTO) 9.9 K/uL (4.8-10.8)
[2024-06-15 11:49] LABS: CALCIUM 8.3 mg/dL (8.4-11.0); CREATININE 0.53 mg/dL (0.55-1.30); POTASSIUM 3.5 mmol/L (3.5-5.1)
[2024-06-15 12:06] LABS: PLATELET COUNT (AUTO) 1230 K/uL (130-430)
[2024-06-15 12:22] LABS: ANISOCYTOSIS 2+; HYPOCHROMASIA 1+; OVALOCYTES FEW; TARGET CELLS FEW
[2024-06-15 12:24] LABS: NEUTROPHILS % (AUTO) 79.3 % (40.0-70.0)
[2024-06-15] MEDS: VANCOMYCIN HCL 750 MG in NS 250 ML IV SCH (16:44)
[2024-06-15] MEDS: MEROPENEM 1 GM IVPB PREMIX 50 ML IV SCH (21:49)
[2024-06-16] VITALS: BP_SYST 105; PULSE 99; RESP 16; TEMP 97.9; O2SAT 94
[2024-06-16] MEDS: LORazepam 2 MG/ML VIAL IVP PRN (00:55)
[2024-06-16] MEDS: D5/0.45 NS 1,000 ML IV SCH (06:45)
[2024-06-16 07:34] LABS: EOSINOPHILS # (AUTO) 0.1 K/uL (0.0-0.4); HEMATOCRIT 28.5 % (36-48); HEMOGLOBIN 8.8 g/dL (12.0-16.0); MEAN CORPUSCULAR HEMOGLOBIN 21 pg (27-31); MEAN CORPUSCULAR HGB CONC 31 % (32-36); MEAN CORPUSCULAR VOLUME 68 fL (79.0-98.0); NEUTROPHILS # (AUTO) 6.6 K/uL (1.8-7.7); RED BLOOD CELL COUNT(AUTO) 4.19 MIL/uL (4.2-6.2); RED CELL DISTRIBUTION WIDTH 25.6 % (9.0-15.0); WHITE BLOOD COUNT (AUTO) 8.4 K/uL (4.8-10.8)
[2024-06-16 07:50] LABS: CALCIUM 8.3 mg/dL (8.4-11.0); CREATININE 0.49 mg/dL (0.55-1.30); POTASSIUM 3.6 mmol/L (3.5-5.1)
[2024-06-16 07:55] VITALS: O2SAT 96
[2024-06-16 08:10] LABS: BASOPHILS % (AUTO) 0.3 % (0.0-2.0); EOSINOPHILS % (AUTO) 1.4 % (0.0-4.0); LYMPHOCYTES % (AUTO) 11.8 % (20.5-51.5); MONOCYTES # (AUTO) 0.6 K/uL (0.0-1.0); MONOCYTES % (AUTO) 7.3 % (1.7-9.3); NEUTROPHILS % (AUTO) 79.2 % (40.0-70.0); PLATELET COUNT (AUTO) 1118 K/uL (130-430)
[2024-06-16 08:18] VITALS: BP_SYST 119; PULSE 105; RESP 16; TEMP 98.2; O2SAT 94
[2024-06-16 12:00] VITALS: BP_SYST 115; PULSE 100; RESP 17; TEMP 98.7; O2SAT 96
[2024-06-16] MEDS: SIMETHICONE 80 MG TAB.CHEW PO SCH (15:36)
[2024-06-16 16:00] VITALS: BP_SYST 113; PULSE 106; RESP 18; TEMP 98.4; O2SAT 94
[2024-06-16 20:00] VITALS: BP_SYST 131; PULSE 112; RESP 16; TEMP 97.9; O2SAT 96
[2024-06-17] VITALS: BP_SYST 117; PULSE 100; RESP 16; TEMP 98.1; O2SAT 96
[2024-06-17 04:46] LABS: BASOPHILS # (AUTO) 0.1 K/uL (0.0-0.2); BASOPHILS % (AUTO) 0.9 % (0.0-2.0); EOSINOPHILS # (AUTO) 0.1 K/uL (0.0-0.4); EOSINOPHILS % (AUTO) 1.5 % (0.0-4.0); HEMATOCRIT 26.4 % (36-48); HEMOGLOBIN 8.3 g/dL (12.0-16.0); LYMPHOCYTES # (AUTO) 0.9 K/uL (1.0-5.5); MEAN CORPUSCULAR HEMOGLOBIN 21 pg (27-31); MEAN CORPUSCULAR HGB CONC 32 % (32-36); MEAN CORPUSCULAR VOLUME 67 fL (79.0-98.0); MONOCYTES # (AUTO) 0.8 K/uL (0.0-1.0); MONOCYTES % (AUTO) 9.8 % (1.7-9.3); NEUTROPHILS % (AUTO) 75.8 % (40.0-70.0); RED BLOOD CELL COUNT(AUTO) 3.94 MIL/uL (4.2-6.2); RED CELL DISTRIBUTION WIDTH 25.8 % (9.0-15.0); WHITE BLOOD COUNT (AUTO) 7.9 K/uL (4.8-10.8)
[2024-06-17 04:47] LABS: ALBUMIN 1.6 g/dL (3.4-4.8); CREATININE 0.43 mg/dL (0.55-1.30); POTASSIUM 3.5 mmol/L (3.5-5.1); TOTAL BILIRUBIN 0.4 mg/dL (0.0-1.0); TOTAL PROTEIN, SERUM 6.1 g/dL (6.4-8.3)
[2024-06-17 04:54] LABS: PLATELET COUNT (AUTO) 1151 K/uL (130-430)
[2024-06-17 05:24] LABS: ERYTHROCYTE SEDIMENTATION RATE 84 MM/HR (0-20)
[2024-06-17 08:00] VITALS: BP_SYST 121; PULSE 109; RESP 18; TEMP 98.9; O2SAT 95
[2024-06-17 10:02] LABS: TOTAL IRON BIND. CAPACITY 153 ug/dL (250-450)
[2024-06-17] MEDS: PANTOPRAZOLE SODIUM 40 MG/VIAL (PROTONIX) IVP SCH (10:12)
[2024-06-17 11:13] VITALS: BP_SYST 128; PULSE 115; RESP 20; TEMP 99.2; O2SAT 95
[2024-06-17 15:00] VITALS: BP_SYST 112; PULSE 116; RESP 16; TEMP 98.2; O2SAT 93
[2024-06-17 19:00] VITALS: BP_SYST 114; PULSE 105; RESP 16; TEMP 98.4; O2SAT 94
[2024-06-17 20:00] VITALS: BP_SYST 114; PULSE 106; RESP 16; TEMP 98.4; O2SAT 94
[2024-06-18] VITALS: BP_SYST 110; PULSE 101; RESP 16; TEMP 98; O2SAT 96
[2024-06-18 07:00] LABS: BASOPHILS # (AUTO) 0.1 K/uL (0.0-0.2); EOSINOPHILS # (AUTO) 0.1 K/uL (0.0-0.4); EOSINOPHILS % (AUTO) 1.3 % (0.0-4.0); HEMATOCRIT 26.2 % (36-48); HEMOGLOBIN 8.1 g/dL (12.0-16.0); LYMPHOCYTES # (AUTO) 0.9 K/uL (1.0-5.5); LYMPHOCYTES % (AUTO) 10.5 % (20.5-51.5); MEAN CORPUSCULAR HEMOGLOBIN 21 pg (27-31); MEAN CORPUSCULAR HGB CONC 31 % (32-36); MEAN CORPUSCULAR VOLUME 67 fL (79.0-98.0); MONOCYTES # (AUTO) 0.9 K/uL (0.0-1.0); MONOCYTES % (AUTO) 10.4 % (1.7-9.3); NEUTROPHILS # (AUTO) 6.7 K/uL (1.8-7.7); NEUTROPHILS % (AUTO) 76.8 % (40.0-70.0); RED BLOOD CELL COUNT(AUTO) 3.91 MIL/uL (4.2-6.2); RED CELL DISTRIBUTION WIDTH 24.7 % (9.0-15.0); WHITE BLOOD COUNT (AUTO) 8.7 K/uL (4.8-10.8)
[2024-06-18 07:18] LABS: CALCIUM 8.3 mg/dL (8.4-11.0); CREATININE 0.44 mg/dL (0.55-1.30); POTASSIUM 4.6 mmol/L (3.5-5.1)
[2024-06-18 07:48] LABS: ERYTHROCYTE SEDIMENTATION RATE 88 MM/HR (0-20)
[2024-06-18 08:00] VITALS: BP_SYST 119; PULSE 118; RESP 16; TEMP 98.8; O2SAT 95
[2024-06-18 08:05] LABS: PLATELET COUNT (AUTO) 1280 K/uL (130-430)
[2024-06-18 11:10] VITALS: BP_SYST 113; PULSE 113; RESP 16; TEMP 99.1; O2SAT 98
[2024-06-18] MEDS: FOLIC ACID 1 MG TABLET PO ONE (11:21)
[2024-06-18] MEDS: SOD FERRIC GLUC COMPLEX/SUC 125 MG in NS 100 ML IV SCH (11:22)
[2024-06-18 16:04] VITALS: BP_SYST 117; PULSE 111; RESP 16; TEMP 99; O2SAT 98
[2024-06-18 20:00] VITALS: BP_SYST 110; PULSE 114; RESP 17; TEMP 97.9
[2024-06-19] MEDS: MORPHINE 2 MG/ML INJ. SYRINGE IVP PRN (06:11)
[2024-06-19 07:22] LABS: BASOPHILS # (AUTO) 0.1 K/uL (0.0-0.2); BASOPHILS % (AUTO) 0.7 % (0.0-2.0); EOSINOPHILS # (AUTO) 0.1 K/uL (0.0-0.4); EOSINOPHILS % (AUTO) 0.9 % (0.0-4.0); HEMATOCRIT 27.3 % (36-48); HEMOGLOBIN 8.3 g/dL (12.0-16.0); LYMPHOCYTES # (AUTO) 1.1 K/uL (1.0-5.5); LYMPHOCYTES % (AUTO) 9.3 % (20.5-51.5); MEAN CORPUSCULAR HEMOGLOBIN 21 pg (27-31); MEAN CORPUSCULAR HGB CONC 31 % (32-36); MEAN CORPUSCULAR VOLUME 68 fL (79.0-98.0); MONOCYTES # (AUTO) 0.9 K/uL (0.0-1.0); MONOCYTES % (AUTO) 8.1 % (1.7-9.3); NEUTROPHILS # (AUTO) 9.2 K/uL (1.8-7.7); RED BLOOD CELL COUNT(AUTO) 4.01 MIL/uL (4.2-6.2); RED CELL DISTRIBUTION WIDTH 24.5 % (9.0-15.0); WHITE BLOOD COUNT (AUTO) 11.4 K/uL (4.8-10.8)
[2024-06-19 07:44] LABS: PLATELET COUNT (AUTO) 1276 K/uL (130-430)
[2024-06-19 07:46] LABS: ERYTHROCYTE SEDIMENTATION RATE > 130 MM/HR (0-20)
[2024-06-19 08:00] VITALS: BP_SYST 125; PULSE 112; RESP 22; TEMP 97.2; O2SAT 96
[2024-06-19 08:06] LABS: INR 1.2 (0.8-1.2); PROTHROMBIN TIME 13.2 SECS (9.5-12.5)
[2024-06-19 08:24] LABS: ALBUMIN 1.8 g/dL (3.4-4.8); CALCIUM 8.6 mg/dL (8.4-11.0); CREATININE 0.44 mg/dL (0.55-1.30); POTASSIUM 3.8 mmol/L (3.5-5.1); TOTAL BILIRUBIN 0.5 mg/dL (0.0-1.0); TOTAL PROTEIN, SERUM 6.9 g/dL (6.4-8.3)
[2024-06-19] MEDS: MIDAZOLAM HCL 5 MG/5 ML VIAL ONE (08:37)
[2024-06-19] MEDS: fentaNYL CITRATE/PF 100 MCG/2 ML AMP ONE (08:37)
[2024-06-19] MEDS: FOLIC ACID 1 MG TABLET PO SCH (09:00)
[2024-06-19] MEDS ORDERED: LIDOCAINE 1%, 20 ML MDV 20 ML ONE (09:45)
[2024-06-19] MEDS: MICAFUNGIN SODIUM 100 MG in NS 100 ML IV SCH (14:20)
[2024-06-19 16:07] LABS: BASOPHILS # (AUTO) 0.1 K/uL (0.0-0.2); BASOPHILS % (AUTO) 0.8 % (0.0-2.0); EOSINOPHILS # (AUTO) 0.2 K/uL (0.0-0.4); EOSINOPHILS % (AUTO) 1.4 % (0.0-4.0); HEMATOCRIT 27.5 % (36-48); HEMOGLOBIN 8.5 g/dL (12.0-16.0); LYMPHOCYTES % (AUTO) 9.5 % (20.5-51.5); MEAN CORPUSCULAR HEMOGLOBIN 21 pg (27-31); MEAN CORPUSCULAR HGB CONC 31 % (32-36); MEAN CORPUSCULAR VOLUME 68 fL (79.0-98.0); MONOCYTES # (AUTO) 1.1 K/uL (0.0-1.0); MONOCYTES % (AUTO) 9.8 % (1.7-9.3); NEUTROPHILS # (AUTO) 8.5 K/uL (1.8-7.7); NEUTROPHILS % (AUTO) 78.5 % (40.0-70.0); RED BLOOD CELL COUNT(AUTO) 4.07 MIL/uL (4.2-6.2); RED CELL DISTRIBUTION WIDTH 25.2 % (9.0-15.0); WHITE BLOOD COUNT (AUTO) 10.8 K/uL (4.8-10.8)
[2024-06-19 16:28] LABS: PLATELET COUNT (AUTO) 1263 K/uL (130-430)
[2024-06-19 17:15] LABS: ANISOCYTOSIS 3+; HYPOCHROMASIA 2+; POLYCHROMASIA 1+
[2024-06-19 17:21] LABS: STOMATOCYTES FEW; TEAR DROP CELLS FEW
[2024-06-19 20:00] VITALS: BP_SYST 107; PULSE 110; RESP 18; TEMP 99; O2SAT 98
[2024-06-20 01:01] VITALS: BP_SYST 110; PULSE 96; RESP 18; TEMP 98; O2SAT 98
[2024-06-20 07:37] LABS: BASOPHILS # (AUTO) 0.1 K/uL (0.0-0.2); BASOPHILS % (AUTO) 0.6 % (0.0-2.0); EOSINOPHILS # (AUTO) 0.1 K/uL (0.0-0.4); EOSINOPHILS % (AUTO) 1.2 % (0.0-4.0); HEMOGLOBIN 8.7 g/dL (12.0-16.0); LYMPHOCYTES % (AUTO) 8.6 % (20.5-51.5); MEAN CORPUSCULAR HEMOGLOBIN 21 pg (27-31); MEAN CORPUSCULAR HGB CONC 30 % (32-36); MEAN CORPUSCULAR VOLUME 68 fL (79.0-98.0); MONOCYTES # (AUTO) 0.7 K/uL (0.0-1.0); MONOCYTES % (AUTO) 6.2 % (1.7-9.3); NEUTROPHILS % (AUTO) 83.4 % (40.0-70.0); RED BLOOD CELL COUNT(AUTO) 4.23 MIL/uL (4.2-6.2)
[2024-06-20 07:57] LABS: CALCIUM 8.6 mg/dL (8.4-11.0); CREATININE 0.46 mg/dL (0.55-1.30); POTASSIUM 3.5 mmol/L (3.5-5.1)
[2024-06-20 08:00] VITALS: BP_SYST 105; PULSE 106; RESP 18; TEMP 98.2; O2SAT 92
[2024-06-20 08:06] LABS: ERYTHROCYTE SEDIMENTATION RATE 107 MM/HR (0-20)
[2024-06-20 09:38] LABS: PLATELET COUNT (AUTO) 1298 K/uL (130-430)
[2024-06-20 12:00] VITALS: BP_SYST 113; PULSE 104; RESP 18; TEMP 98.5; O2SAT 93
[2024-06-20 16:00] VITALS: BP_SYST 93; PULSE 95; RESP 18; TEMP 98.7; O2SAT 93
[2024-06-20 20:00] VITALS: BP_SYST 107; PULSE 92; RESP 16; TEMP 98; O2SAT 99
[2024-06-21] VITALS (7 sets, daily range): BP systolic 97–112; PULSE 89–106; RESP 16–18; TEMP 96.9–98.2; O2SAT 95–100
[2024-06-21 08:04] LABS: BASOPHILS # (AUTO) 0.1 K/uL (0.0-0.2); EOSINOPHILS # (AUTO) 0.2 K/uL (0.0-0.4); EOSINOPHILS % (AUTO) 2.2 % (0.0-4.0); HEMATOCRIT 27.4 % (36-48); HEMOGLOBIN 8.3 g/dL (12.0-16.0); LYMPHOCYTES # (AUTO) 0.9 K/uL (1.0-5.5); MEAN CORPUSCULAR HEMOGLOBIN 21 pg (27-31); MEAN CORPUSCULAR HGB CONC 30 % (32-36); MEAN CORPUSCULAR VOLUME 68 fL (79.0-98.0); MONOCYTES # (AUTO) 0.7 K/uL (0.0-1.0); MONOCYTES % (AUTO) 7.8 % (1.7-9.3); NEUTROPHILS # (AUTO) 6.9 K/uL (1.8-7.7); WHITE BLOOD COUNT (AUTO) 8.8 K/uL (4.8-10.8)
[2024-06-21 08:05] LABS: ALBUMIN 1.6 g/dL (3.4-4.8); CALCIUM 8.5 mg/dL (8.4-11.0); CREATININE 0.53 mg/dL (0.55-1.30); POTASSIUM 3.6 mmol/L (3.5-5.1); TOTAL BILIRUBIN 0.4 mg/dL (0.0-1.0); TOTAL PROTEIN, SERUM 6.3 g/dL (6.4-8.3); VANCOMYCIN,TROUGH 13.4 ug/mL (10.0-20.0)
[2024-06-21 08:28] LABS: ERYTHROCYTE SEDIMENTATION RATE 82 MM/HR (0-20)
[2024-06-21] MEDS ORDERED: traMADol HCL HCL 50 MG TABLET (ULTRAM) PO PRN (09:00)
[2024-06-21 09:13] LABS: PLATELET COUNT (AUTO) 1084 K/uL (130-430)
[2024-06-21 09:14] LABS: RED CELL DISTRIBUTION WIDTH 24.5 % (9.0-15.0)
[2024-06-21] MEDS: NORMAL SALINE 5 ML DISP.SYRIN IVF SCH (14:00)
[2024-06-22 00:15] VITALS: BP_SYST 104; PULSE 99; RESP 18; TEMP 97.2; O2SAT 99
[2024-06-22 06:47] LABS: BASOPHILS # (AUTO) 0.1 K/uL (0.0-0.2); BASOPHILS % (AUTO) 0.8 % (0.0-2.0); EOSINOPHILS # (AUTO) 0.2 K/uL (0.0-0.4); EOSINOPHILS % (AUTO) 2.2 % (0.0-4.0); HEMATOCRIT 26.5 % (36-48); LYMPHOCYTES # (AUTO) 0.9 K/uL (1.0-5.5); LYMPHOCYTES % (AUTO) 10.8 % (20.5-51.5); MEAN CORPUSCULAR HEMOGLOBIN 21 pg (27-31); MEAN CORPUSCULAR HGB CONC 30 % (32-36); MEAN CORPUSCULAR VOLUME 68 fL (79.0-98.0); MONOCYTES # (AUTO) 0.7 K/uL (0.0-1.0); MONOCYTES % (AUTO) 7.4 % (1.7-9.3); NEUTROPHILS # (AUTO) 6.9 K/uL (1.8-7.7); NEUTROPHILS % (AUTO) 78.8 % (40.0-70.0); RED BLOOD CELL COUNT(AUTO) 3.88 MIL/uL (4.2-6.2); RED CELL DISTRIBUTION WIDTH 24.2 % (9.0-15.0); WHITE BLOOD COUNT (AUTO) 8.8 K/uL (4.8-10.8)
[2024-06-22 06:59] LABS: CALCIUM 8.5 mg/dL (8.4-11.0); CREATININE 0.42 mg/dL (0.55-1.30); POTASSIUM 3.8 mmol/L (3.5-5.1)
[2024-06-22 07:25] LABS: ERYTHROCYTE SEDIMENTATION RATE 68 MM/HR (0-20)
[2024-06-22 08:00] VITALS: BP_SYST 97; PULSE 98; RESP 18; TEMP 98.3; O2SAT 96
[2024-06-22 10:49] LABS: PLATELET COUNT (AUTO) 973 K/uL (130-430)
[2024-06-22 12:00] VITALS: BP_SYST 103; PULSE 81; RESP 16; TEMP 98.7; O2SAT 96
[2024-06-22 16:00] VITALS: BP_SYST 105; PULSE 89; RESP 16; TEMP 98.6; O2SAT 98
[2024-06-22 20:00] VITALS: BP_SYST 102; PULSE 91; RESP 17; TEMP 97.6; O2SAT 96
[2024-06-22] MEDS: MEROPENEM 1 GM in NS 100 ML IV SCH (20:23)
[2024-06-23 00:21] VITALS: BP_SYST 100; PULSE 89; RESP 17; TEMP 97.5; O2SAT 97
[2024-06-23 08:01] VITALS: O2SAT 95
[2024-06-23 08:10] VITALS: BP_SYST 123; PULSE 81; RESP 16; TEMP 98.3; O2SAT 96
[2024-06-23] MEDS: traMADol HCL HCL 50 MG TABLET (ULTRAM) PO PRN (10:04)
[2024-06-23 11:06] VITALS: BP_SYST 105; PULSE 98; RESP 16; TEMP 96.8; O2SAT 100
[2024-06-23] MEDS: SENNOSIDES 8.6 MG TABLET PO ONE (14:03)
[2024-06-23 15:06] VITALS: BP_SYST 114; PULSE 107; RESP 16; TEMP 97.2; O2SAT 95
[2024-06-23 20:00] VITALS: BP_SYST 104; PULSE 97; RESP 20; TEMP 98; O2SAT 97
[2024-06-23] MEDS: SIMETHICONE 80 MG TAB.CHEW PO SCH (20:14)
[2024-06-23] MEDS: SUCRALFATE 1 GM TABLET PO SCH (23:02)
[2024-06-24] VITALS: BP_SYST 109; PULSE 72; RESP 20; TEMP 98; O2SAT 97
[2024-06-24 08:12] LABS: BASOPHILS # (AUTO) 0.1 K/uL (0.0-0.2); BASOPHILS % (AUTO) 1.3 % (0.0-2.0); EOSINOPHILS # (AUTO) 0.2 K/uL (0.0-0.4); EOSINOPHILS % (AUTO) 2.7 % (0.0-4.0); HEMATOCRIT 29.3 % (36-48); HEMOGLOBIN 8.9 g/dL (12.0-16.0); LYMPHOCYTES # (AUTO) 1.2 K/uL (1.0-5.5); LYMPHOCYTES % (AUTO) 16.3 % (20.5-51.5); MEAN CORPUSCULAR HEMOGLOBIN 21 pg (27-31); MEAN CORPUSCULAR HGB CONC 30 % (32-36); MEAN CORPUSCULAR VOLUME 70 fL (79.0-98.0); MONOCYTES # (AUTO) 0.7 K/uL (0.0-1.0); MONOCYTES % (AUTO) 9.5 % (1.7-9.3); NEUTROPHILS # (AUTO) 5.3 K/uL (1.8-7.7); NEUTROPHILS % (AUTO) 70.2 % (40.0-70.0); RED BLOOD CELL COUNT(AUTO) 4.21 MIL/uL (4.2-6.2); RED CELL DISTRIBUTION WIDTH 25.3 % (9.0-15.0); WHITE BLOOD COUNT (AUTO) 7.6 K/uL (4.8-10.8)
[2024-06-24 08:13] VITALS: BP_SYST 109; PULSE 98; RESP 19; TEMP 97.3; O2SAT 98
[2024-06-24] MEDS: BISACODYL 5 MG TABLET.DR (DULCOLAX) PO SCH (08:24)
[2024-06-24] MEDS: SENNOSIDES 8.6 MG TABLET PO SCH (08:24)
[2024-06-24] MEDS: DULoxetine HCL 20 MG CAPSULE.DR PO SCH (08:24)
[2024-06-24 08:53] LABS: PLATELET COUNT (AUTO) 824 K/uL (130-430)
[2024-06-24] MEDS ORDERED: HYDROcodone/ACETAMIN 5-325 MG TAB (NORCO/ VICODIN) PO PRN (09:45)
[2024-06-24] MEDS ORDERED: NALOXONE HCL 0.4 MG/ML AMP (NARCAN) IVP PRN ×2 (09:45)
[2024-06-24 12:50] VITALS: BP_SYST 107; PULSE 88; RESP 17; TEMP 97.8; O2SAT 97
[2024-06-24] MEDS: HYDROcodone/ACETAMIN 10-325 MG TAB PO PRN (13:56)
[2024-06-24 16:22] VITALS: BP_SYST 108; PULSE 94; RESP 18; TEMP 97.4; O2SAT 98
[2024-06-24 20:00] VITALS: BP_SYST 112; PULSE 87; RESP 18; TEMP 97.8; O2SAT 97
[2024-06-25] VITALS (8 sets, daily range): BP systolic 109–131; PULSE 56–100; RESP 16–18; TEMP 97–98.5; O2SAT 96–100
[2024-06-25 06:36] LABS: CREATININE 0.48 mg/dL (0.55-1.30); POTASSIUM 4.1 mmol/L (3.5-5.1)
[2024-06-25 06:39] LABS: ERYTHROCYTE SEDIMENTATION RATE 104 MM/HR (0-20)
[2024-06-25 06:45] LABS: BASOPHILS # (AUTO) 0.1 K/uL (0.0-0.2); BASOPHILS % (AUTO) 2.1 % (0.0-2.0); EOSINOPHILS # (AUTO) 0.2 K/uL (0.0-0.4); EOSINOPHILS % (AUTO) 4.4 % (0.0-4.0); HEMATOCRIT 29.7 % (36-48); HEMOGLOBIN 8.9 g/dL (12.0-16.0); LYMPHOCYTES % (AUTO) 17.8 % (20.5-51.5); MEAN CORPUSCULAR HEMOGLOBIN 21 pg (27-31); MEAN CORPUSCULAR HGB CONC 30 % (32-36); MEAN CORPUSCULAR VOLUME 70 fL (79.0-98.0); MONOCYTES # (AUTO) 0.5 K/uL (0.0-1.0); MONOCYTES % (AUTO) 9.2 % (1.7-9.3); NEUTROPHILS # (AUTO) 3.8 K/uL (1.8-7.7); NEUTROPHILS % (AUTO) 66.5 % (40.0-70.0); PLATELET COUNT (AUTO) 724 K/uL (130-430); RED BLOOD CELL COUNT(AUTO) 4.24 MIL/uL (4.2-6.2); RED CELL DISTRIBUTION WIDTH 25.4 % (9.0-15.0); WHITE BLOOD COUNT (AUTO) 5.7 K/uL (4.8-10.8)
[2024-06-25] MEDS ORDERED: NALOXONE HCL 0.4 MG/ML AMP (NARCAN) IVP PRN (14:45)
[2024-06-25] MEDS: MORPHINE 2 MG/ML INJ. SYRINGE IVP ONE (14:47)
[2024-06-26 00:26] VITALS: BP_SYST 119; PULSE 76; RESP 16; TEMP 96.5; O2SAT 100
[2024-06-26 06:25] LABS: BASOPHILS # (AUTO) 0.1 K/uL (0.0-0.2); BASOPHILS % (AUTO) 1.3 % (0.0-2.0); EOSINOPHILS # (AUTO) 0.2 K/uL (0.0-0.4); EOSINOPHILS % (AUTO) 3.5 % (0.0-4.0); HEMATOCRIT 29.1 % (36-48); HEMOGLOBIN 8.9 g/dL (12.0-16.0); LYMPHOCYTES # (AUTO) 1.2 K/uL (1.0-5.5); LYMPHOCYTES % (AUTO) 19.6 % (20.5-51.5); MEAN CORPUSCULAR HEMOGLOBIN 21 pg (27-31); MEAN CORPUSCULAR HGB CONC 31 % (32-36); MEAN CORPUSCULAR VOLUME 70 fL (79.0-98.0); MONOCYTES # (AUTO) 0.5 K/uL (0.0-1.0); MONOCYTES % (AUTO) 8.3 % (1.7-9.3); NEUTROPHILS % (AUTO) 67.3 % (40.0-70.0); PLATELET COUNT (AUTO) 684 K/uL (130-430); RED BLOOD CELL COUNT(AUTO) 4.16 MIL/uL (4.2-6.2); RED CELL DISTRIBUTION WIDTH 25.7 % (9.0-15.0); WHITE BLOOD COUNT (AUTO) 5.9 K/uL (4.8-10.8)
[2024-06-26 06:59] LABS: CREATININE 0.52 mg/dL (0.55-1.30); POTASSIUM 4.2 mmol/L (3.5-5.1)
[2024-06-26 07:13] LABS: ERYTHROCYTE SEDIMENTATION RATE 72 MM/HR (0-20)
[2024-06-26 07:40] VITALS: O2SAT 99
[2024-06-26 08:15] VITALS: BP_SYST 130; PULSE 71; RESP 18; TEMP 97.7
[2024-06-26] MEDS ORDERED: MERO1VIA23 IV (09:10)
[2024-06-26] MEDS ORDERED: FOLI-43 PO (09:10)
[2024-06-26] MEDS ORDERED: DULO20CA PO (09:10)
[2024-06-26] MEDS ORDERED: HYDR-3919 PO (09:10)
[2024-06-26] MEDS ORDERED: SIME80TA15 PO (09:10)
[2024-06-26] MEDS ORDERED: SUCR1TAB31 PO (09:10)
[2024-06-26] MEDS ORDERED: HYDR-3927 PO (09:10)
[2024-06-26] MEDS ORDERED: BISA-140 PO (09:10)
[2024-06-26] MEDS ORDERED: FLUC200T PO (09:10)
[2024-06-26] MEDS ORDERED: PRO40 PO (09:10)
[2024-06-26 12:46] VITALS: BP_SYST 124; BP_SYST 90; PULSE 61; PULSE 91; RESP 18; RESP 20; TEMP 98.5; TEMP 98.7; O2SAT 100; O2SAT 91
[2024-06-26 15:18] VITALS: BP_SYST 124; PULSE 91; RESP 20; TEMP 98.5; O2SAT 98
[2024-06-26 17:06] VITALS: BP_SYST 127; PULSE 69; RESP 16; TEMP 96.9; O2SAT 96
[2024-06-27] MEDS ORDERED: FLUCONAZOLE 200 MG TABLET (DIFLUCAN) PO SCH (09:00)
== END 2024-06-26 17:00 | disposition home health service (06) | DRG 871 ==
LOC: SED 19:44 → SMU 21:49
PROVIDERS: ADMIT Preventive Medicine Preventive Medicine/Occupational Environmental Medicine; ATTEND Preventive Medicine Preventive Medicine/Occupational Environmental Medicine
PROC: 02HV33Z Insertion of Infusion Device into Superior Vena Cava, Percutaneous Approach (ICD-10-PCS; 2024-06-17)
PROC: 0W9B3ZZ Drainage of Left Pleural Cavity, Percutaneous Approach (ICD-10-PCS; principal; 2024-06-18)
PROC: 0D9W3ZZ Drainage of Peritoneum, Percutaneous Approach (ICD-10-PCS; 2024-06-19)
DX: A41.9 Sepsis, unspecified organism (principal); E43 Unspecified severe protein-calorie malnutrition; J18.9 Pneumonia, unspecified organism; K65.1 Peritoneal abscess; E87.1 Hypo-osmolality and hyponatremia; T81.43XA Infection following a procedure, organ and space surgical site, initial encounter; J91.8 Pleural effusion in other conditions classified elsewhere; D75.838 Other thrombocytosis; E11.65 Type 2 diabetes mellitus with hyperglycemia; E66.01 Morbid (severe) obesity due to excess calories; E83.51 Hypocalcemia; E88.09 Other disorders of plasma-protein metabolism, not elsewhere classified; G51.0 Bell's palsy; D75.839 Thrombocytosis, unspecified; D50.9 Iron deficiency anemia, unspecified; L40.9 Psoriasis, unspecified; K58.9 Irritable bowel syndrome, unspecified; Y83.8 Other surgical procedures as the cause of abnormal reaction of the patient, or of later complication, without mention of misadventure at the time of the procedure; Z98.84 Bariatric surgery status; Z90.49 Acquired absence of other specified parts of digestive tract; Y92.89 Other specified places as the place of occurrence of the external cause; Z79.899 Other long term (current) drug therapy; Z88.8 Allergy status to other drugs, medicaments and biological substances; Z68.20 Body mass index [BMI] 20.0-20.9, adult
CPT/HCPCS: 32555; 36415; 71045; 73030; 74018; 74250; 80048; 80053; 80202; 83540; 83550; 83605; 85007; 85025; 85027; 85610; 85651; 85730; 87040; 87070; 87081; 88108; 88305; 93005; 97110-GP; 97116-GP; 97530-GP; 99285; C1729; C1769; J2001; J2060; J2185; J2248; J2250; J2270; J2405; J2470; J2916; J3010; J7050; Q9967